=== PATIENT | male | born 1990 | race Two or more races ===

== ENCOUNTER 2022-05-24 12:35 | Emergency (ER) | payer MEDICAID ==
[~2022-05-24] VITALS: Ht 165.1 cm; Wt 90.7 kg
[2022-05-24 12:59] VITALS: BP 129/77
[2022-05-24] MEDS ORDERED: OFLO5DRO5 RIGHT EAR (13:08)
== END 2022-05-24 13:14 | disposition home or self-care (01) ==
LOC: ER 12:37
DX: H60.91 Unspecified otitis externa, right ear (principal); Z79.899 Other long term (current) drug therapy